=== PATIENT | male | born 1940 | race Caucasian/White ===

== ENCOUNTER 2019-12-09 07:29 | Day surgery (SDC) | payer MEDICARE ==
[2019-12-06 16:35] VITALS: BP 108/61
[2019-12-06 16:40] LABS: BASOPHILS % (AUTO) 0.8 % (0.0-5.0); EOSINOPHILS % (AUTO) 4.4 % (0.0-8.0); LYMPHOCYTES % (AUTO) 35.6 % (21.0-51.0); MEAN CORPUSCULAR HEMOGLOBIN 30.5 pg (27.0-33.0); MEAN CORPUSCULAR HGB CONC 32.8 g/dL (32.0-36.0); MEAN CORPUSCULAR VOLUME 93.1 fL (79-99); NEUTROPHILS % (AUTO) 47.8 % (40.0-77.0); PLATELET COUNT (AUTO) 234 K/uL (130-400); RED BLOOD CELL COUNT(AUTO) 4.62 MIL/uL (4.50-6.20); RED CELL DISTRIBUTION WIDTH 13.3 % (11.0-15.5); WHITE BLOOD COUNT (AUTO) 7.5 K/uL (4.8-10.8)
[2019-12-06 16:41] LABS: APPEARANCE,URINE Clear (CLEAR); BILIRUBIN,URINE Negative (NEGATIVE); COLOR,URINE Yellow (YELLOW); GLUCOSE, URINE (UA) Negative (NEGATIVE); KETONES,URINE Negative (NEGATIVE); LEUKOCYTE ESTERASE ,URINE Negative (NEGATIVE); NITRATE,URINE Negative (NEGATIVE); OCCULT BLOOD,URINE Negative (NEGATIVE); PROTEIN,URINE Trace mg/dL (NEGATIVE)
[2019-12-06 16:50] LABS: CREATININE 1.3 mg/dL (0.5-1.5); POTASSIUM 4.2 mmol/L (3.5-5.1)
[2019-12-06 16:54] LABS: INR 0.97 (0.85-1.15); PARTIAL THROMBOPLASTIN TIME 25.7 SEC (26.3-35.5); PROTHROMBIN TIME 10.2 SEC (9.6-11.6)
[2019-12-06 17:01] LABS: BACTERIA,URINE Few /HPF (None Seen); MUCUS,URINE Moderate LPF (None Seen); SQUAMOUS EPITHELIAL CELL,UR Few /HPF (0-2)
--- NOTE | 2019-12-08 14:06 | NUR ---
CARDIAC: DR. SHARP VIEWED EKG. NO ORDERS GIVEN, OK TO PROCEED WITH SURGERY.
[~2019-12-09] VITALS: Ht 170.2 cm; Wt 104.9 kg
[2019-12-09] VITALS (20 sets, daily range): BP systolic 97–141; BP diastolic 49–66
[2019-12-09] MEDS: CEFTRIAXONE SODIUM 1 GM IVP SCH ×2 (06:00→09:00)
[~2019-12-09 07:29] MED LIST: ASPI-1197 PO; ATEN25TA PO; DESO15OI TP; EZET10TA13 PO; FENO160T16 PO; FISH1CAP63 PO; FLAXSEED OIL PO; FURO20TA4 PO; GENTAMICIN 80 MG/NS 100 ML PB 100 ML IV SCH; KETO120S3 TP; MULT-40 PO; NYSTATIN TP; UBID10CA6 PO; VENL-63 PO; VITAMIN D3 PO; [UNRECOGNIZED DRUG - OTHER] PO; [UNRECOGNIZED DRUG - OTHER] PO
[2019-12-09] MEDS ORDERED: SODIUM CHLORIDE 0.9% 1000ML 1,000 ML IV ONE ×2 (07:58→08:00)
[2019-12-09] MEDS ORDERED: LIDOCAINE PF 2% 5ML ABBOJECT ONE (08:47)
[2019-12-09] MEDS ORDERED: PROPOFOL 10 MG/ML 20ML VIAL IV ONE (08:47)
[2019-12-09] MEDS ORDERED: FENTANYL CITRATE PF 50 MCG/1 ML 2ML VIAL ONE ×3 (08:48→10:44)
[2019-12-09] MEDS ORDERED: EPHEDRINE SULFATE 50 MG/ML AMPULE ONE (09:27)
[2019-12-09] MEDS ORDERED: GLYCOPYRROLATE 1 MG/5 ML SYRINGE ONE (09:46)
[2019-12-09] MEDS ORDERED: PHENYLEPHRINE HCL 10 MG/ML 1ML VIAL IV ONE (09:50)
[2019-12-09] MEDS ORDERED: SODIUM CHLORIDE 0.9% 10 ML VIAL ONE (09:50)
[2019-12-09] MEDS ORDERED: MEPERIDINE-PF 25 MG/ML SYG ONE (11:43)
--- NOTE | 2019-12-09 12:40 | NUR ---
PATIENT ARRIVED TO DAY PATIENT VIA STRETCHER BY ALEJA HART. PATIENT [id number], RESPIRATIONS UNLABORED, VITAL SIGNS STABLE.DENIES PAIN AT THIS TIME. DENT CATHETER PRESENT DRAINING CLEAR YELLOW URINE WITH CBI IN PLACE.
--- NOTE | 2019-12-09 12:55 | NUR ---
DENT BAG CHANGED TO LEG BAG, INSTRUCTED SPOUSE ON HOW TO CHANGE THE DENT BAG TO A LEG BAG. SPOUSE VERBALIZED UNDERSTANDING.
--- NOTE | 2019-12-09 13:10 | NUR ---
TEACHING DISCHARGE INSTRUCTIONS PROVIDED TO PATIENT'S SPOUSE, DENT CARE INSTRUCTIONS AND HANDOUT PROVIDED. FOLLOW UP APPOINTMENT PROVIDED AND PRESCRIPTION PROVIDED. ALL QUESTIONS/CONCERNS ADDRESSED.
--- NOTE | 2019-12-09 13:35 | NUR ---
PATIENT DISCHARGE PATIENT DISCHARGED FROM FACILITY VIA WHEELCHAIR BY NURSE. PATIENT ASSISTED INTO PRIVATE VEHICLE DRIVEN BY SPOUSE.
== END 2019-12-09 13:35 | disposition home or self-care (01) ==
LOC: DAH 07:29
PROVIDERS: ATTEND Urology
DX: N40.0 Benign prostatic hyperplasia without lower urinary tract symptoms (principal); N35.819 Other urethral stricture, male, unspecified site; I25.10 Atherosclerotic heart disease of native coronary artery without angina pectoris; F32.9 Major depressive disorder, single episode, unspecified; I11.0 Hypertensive heart disease with heart failure; I50.9 Heart failure, unspecified; E11.9 Type 2 diabetes mellitus without complications; Z79.82 Long term (current) use of aspirin; Z79.899 Other long term (current) drug therapy; Z87.891 Personal history of nicotine dependence; Z98.890 Other specified postprocedural states; Z96.651 Presence of right artificial knee joint; Z82.49 Family history of ischemic heart disease and other diseases of the circulatory system; Z98.49 Cataract extraction status, unspecified eye
CPT/HCPCS: 36415; 52648; 71045; 80048; 81001; 82948 ×2; 85025; 85610; 85730; 87088; 93005; A4215; A4221; A4222; A4223; A4354; A4600; A4663; C1758; J0696; J1580; J2001; J2175; J2370; J2704; J3010 ×3; J3490 ×2; J7030 ×3

== ENCOUNTER 2020-03-21 10:51 | Emergency (ER) | payer MEDICARE ==
[~2020-03-21 10:51] MED LIST changes: -GENTAMICIN 80 MG/NS 100 ML PB 100 ML IV SCH
== END 2020-03-21 12:24 | disposition home or self-care (01) ==
LOC: EDH 10:51
DX: S83.91XA Sprain of unspecified site of right knee, initial encounter (principal); E78.5 Hyperlipidemia, unspecified; I25.10 Atherosclerotic heart disease of native coronary artery without angina pectoris; Z87.891 Personal history of nicotine dependence; W18.39XA Other fall on same level, initial encounter; Y93.89 Activity, other specified; Y92.89 Other specified places as the place of occurrence of the external cause; Y99.8 Other external cause status
CPT/HCPCS: 29505; 73562